=== PATIENT | female | born 1995 | race African-American/Black ===

== ENCOUNTER → 2021-12-02 07:54 | Outpatient (CLI) | payer OTHER, MEDICAID, SELFPAY ==
[2021-12-02 09:17] LABS: COVID19 -Nasal RAPID Negative (Negative); Influenza A - CEPHEID Flu A NEGATIVE (NEGATIVE); Influenza B - CEPHEID Flu B NEGATIVE (NEGATIVE)
== END ==
PROVIDERS: Visit Provider Nurse Practitioner Family
DX: Z20.822 Contact with and (suspected) exposure to COVID-19 (principal); R11.10 Vomiting, unspecified; R52 Pain, unspecified
CPT/HCPCS: 87502; 87635